=== PATIENT | female | born 1970 | race Caucasian/White ===

== ENCOUNTER 2016-03-23 15:48 | Day surgery (SDC) | payer OTHER ==
[2016-03-20 14:44] VITALS: BMI 24.7
[2016-03-23 16:13] VITALS: TEMP 98.3
[2016-03-23] MEDS ORDERED: TRIAMCINOLONE ACET 40MG/1ML VIAL ONE (18:13)
[2016-03-23] MEDS ORDERED: BUPIVACAINE HCL/PF 0.5% (5MG/ML) 10 ML VIAL ONE ×2 (18:13→18:40)
[2016-03-23] MEDS ORDERED: PROPOFOL 20 ML ONE ×2 (18:20→18:42)
[2016-03-23] MEDS ORDERED: MIDAZOLAM HCL 2 MG/2 ML SINGLE DOSE VIAL ONE (18:20)
[2016-03-23] MEDS ORDERED: BUPIVACAINE HCL/PF 0.5% (5MG/ML) 10 ML VIAL IJ ONE (18:42)
[2016-03-23] MEDS ORDERED: TRIAMCINOLONE ACET 40MG/1ML VIAL IM ONE (18:46)
--- NOTE | 2016-03-23 18:57 | OP ---
Operative Note - Note: Operative Date: 03/23/16 Pre-Operative Diagnosis: thoracic spondylosis Operation: thoracic facet blocks bilaterally T10- L1 Post-Operative Diagnosis: Same as Pre-op Surgeon: Wilner Wang Anesthesia: MAC
[2016-03-23 19:46] VITALS: BP 123/78; PULSE 79
== END 2016-03-23 19:35 | disposition home or self-care (01) ==
LOC: JASU-SURG 15:48
PROVIDERS: ATTEND Anesthesiology
PROC: 3E0T3BZ Introduction of Anesthetic Agent into Peripheral Nerves and Plexi, Percutaneous Approach (ICD-10-PCS; 2016-03-23)
PROC: BR15YZZ Fluoroscopy of Thoracic Facet Joint(s) using Other Contrast (ICD-10-PCS; 2016-03-23)
PROC: 3E0T33Z Introduction of Anti-inflammatory into Peripheral Nerves and Plexi, Percutaneous Approach (ICD-10-PCS; principal; 2016-03-23 17:30)
DX: M47.814 Spondylosis without myelopathy or radiculopathy, thoracic region (principal)
CPT/HCPCS: 76000-TC; 84703

== ENCOUNTER 2023-01-26 04:12 | Day surgery (SDC) | payer OTHER ==
[2023-01-22 09:38] VITALS: BMI 27.3
[~2023-01-26 04:12] MED LIST: BUPIVACAINE HCL/PF 0.25% (2.5MG/ML) 10 ML VIAL IJ ONE; cefOXitin SODIUM 1 GM VIAL (RESTRICTED TO ID) IVPB ONE
[2023-01-26] MEDS ORDERED: HYDROmorphone HCl 2 MG/ML VIAL ONE (09:53)
[2023-01-26] MEDS ORDERED: MIDAZOLAM HCL 2 MG/2 ML SINGLE DOSE VIAL ONE (09:54)
[2023-01-26] MEDS ORDERED: KETAMINE HCL 200 MG/20 ML VIAL ONE (09:54)
[2023-01-26] MEDS ORDERED: SODIUM CHLORIDE 0.9% P/F 10 ML VIAL IJ ONE (09:58)
[2023-01-26] MEDS ORDERED: ROCURONIUM BROMIDE 50 MG/5 ML SYRINGE ONE (09:59)
[2023-01-26] MEDS ORDERED: BUPIVACAINE HCL/PF 0.5% (5MG/ML) 10 ML VIAL ONE (10:54)
[2023-01-26] MEDS ORDERED: ONDANSETRON 4 MG/2 ML VIAL IVPUSH PRN (11:00)
[2023-01-26] MEDS ORDERED: BUPIVACAINE HCL/PF 0.25% (2.5MG/ML) 10 ML VIAL ONE (11:35)
[2023-01-26] MEDS ORDERED: cefOXitin SODIUM 1 GM VIAL (RESTRICTED TO ID) IVPB ONE (12:15)
[2023-01-26] MEDS ORDERED: BUPIVACAINE HCL/PF 0.25% (2.5MG/ML) 10 ML VIAL IJ ONE (12:25)
[2023-01-26] MEDS ORDERED: METOPROLOL TARTRATE 5 MG/5 ML VIAL ONE (13:02)
[2023-01-26] MEDS ORDERED: PROPOFOL 20 ML ONE (14:09)
[2023-01-26] MEDS ORDERED: SUGAMMADEX SODIUM 200 MG/2 ML VIAL ONE (14:12)
[2023-01-26] MEDS ORDERED: DROSPIRENONE 4 MG PO SCH (15:00)
[2023-01-26] MEDS: LACTATED RINGERS SOLUTION 1,000 ML IV SCH (17:42)
[2023-01-26] MEDS: ONDANSETRON 4 MG/2 ML VIAL IVPUSH SCH (18:30)
[2023-01-26] MEDS: ACETAMINOPHEN 1000 MG/100 ML BAG IVPB SCH (20:52)
[2023-01-26] MEDS: METOCLOPRAMIDE HCL INJECTION 10 MG/2 ML VIAL IVPUSH SCH (20:54)
[2023-01-26] MEDS: HEPARIN NA (PORCINE) 5,000 UNITS/ML 1ML VIAL SQ SCH (22:17)
[2023-01-26] MEDS: FAMOTIDINE 20 MG/50 ML IVPB 20 MG/50 ML MG IVPB SCH (22:18)
[2023-01-27] MEDS: ONDANSETRON 4 MG/2 ML VIAL IVPUSH SCH ×3 (00:07→13:32)
[2023-01-27] MEDS: ACETAMINOPHEN 1000 MG/100 ML BAG IVPB SCH ×3 (02:00→15:10)
[2023-01-27] MEDS: METOCLOPRAMIDE HCL INJECTION 10 MG/2 ML VIAL IVPUSH SCH ×2 (04:46→13:32)
[2023-01-27] MEDS ORDERED: ACETAMINOPHEN 325 MG TABLET (FP) PO ONE (05:11)
[2023-01-27] MEDS: LACTATED RINGERS SOLUTION 1,000 ML IV SCH ×2 (07:24→15:10)
[2023-01-27 09:29] LABS: HEMATOCRIT 33.4 % (32.4-45.2); HEMOGLOBIN 10.9 GM/dL (10.7-15.3); MCH 29.6 pg (25.7-33.7); MCHC 32.7 g/dl (32.0-36.0); MEAN CELL VOLUME 90.5 fl (80-96); MEAN PLT VOLUME 6.9 fl (7.5-11.1); PLATELET COUNT 343 10^3/uL (134-434); RBC 3.69 M/mm3 (3.60-5.2); WHITE BLOOD COUNT 11.6 K/mm3 (4.0-10.0)
[2023-01-27 09:43] LABS: POTASSIUM 3.8 mmol/L (3.5-5.1)
[2023-01-27 09:53] LABS: CREATININE 1.1 mg/dL (0.55-1.3)
[2023-01-27] MEDS: FAMOTIDINE 20 MG/50 ML IVPB 20 MG/50 ML MG IVPB SCH (10:32)
[2023-01-27] MEDS: HEPARIN NA (PORCINE) 5,000 UNITS/ML 1ML VIAL SQ SCH (10:32)
[2023-01-27] MEDS ORDERED: ONDANSETRON 4 MG TABLET PO ONE (13:32)
[2023-01-27] MEDS ORDERED: oxyCODONE HCL 5 MG TABLET PO PRN (13:34)
[2023-01-27] MEDS ORDERED: FAMOTIDINE 20 MG TABLET PO SCH (13:45)
[2023-01-27] MEDS ORDERED: ONDANSETRON *ODT* 4 MG TABLET SL ONE (13:45)
[2023-01-27 14:03] VITALS: BP 128/74; PULSE 96; RESP 17; TEMP 99.6
[2023-01-27] MEDS ORDERED: METOCLOPRAMIDE HCL 10 MG TABLET (FP) PO SCH (16:30)
== END 2023-01-27 16:45 | disposition home or self-care (01) ==
LOC: SUATTDRO 04:12 → JASUSAT 04:12 → JASU-SURG 04:12 → J6S 16:59 → JASUSAT 01-27 16:45
PROVIDERS: ATTEND Internal Medicine
PROC: 0DV44ZZ Restriction of Esophagogastric Junction, Percutaneous Endoscopic Approach (ICD-10-PCS; 2023-01-26)
PROC: 0BQT4ZZ Repair Diaphragm, Percutaneous Endoscopic Approach (ICD-10-PCS; principal; 2023-01-26 08:00)
DX: K44.9 Diaphragmatic hernia without obstruction or gangrene (principal); K21.9 Gastro-esophageal reflux disease without esophagitis
CPT/HCPCS: 36415; 80048; 85027; 86850; 86900; 86901; 94760; J1644

== ENCOUNTER 2023-03-18 04:06 | Day surgery (SDC) | payer OTHER ==
[2023-03-16 11:16] VITALS: BMI 26.5
[2023-03-18] MEDS ORDERED: PROPOFOL 20 ML ONE (10:19)
[2023-03-18] MEDS ORDERED: oxyCODONE HCL 5 MG TABLET PO PRN (11:02)
[2023-03-18] MEDS ORDERED: ONDANSETRON 4 MG/2 ML VIAL IVPUSH PRN (11:02)
[2023-03-18] MEDS ORDERED: LACTATED RINGERS SOLUTION 1,000 ML IV SCH (11:15)
[2023-03-18 12:39] VITALS: RESP 18
[2023-03-18 13:13] VITALS: BP 116/74; PULSE 76; TEMP 98.2
== END 2023-03-18 12:10 | disposition home or self-care (01) ==
LOC: JASU-SURG 04:06
PROVIDERS: ATTEND Otolaryngology
PROC: 0WJQ8ZZ Inspection of Respiratory Tract, Via Natural or Artificial Opening Endoscopic Approach (ICD-10-PCS; principal; 2023-03-18 10:00)
DX: G47.33 Obstructive sleep apnea (adult) (pediatric) (principal)
CPT/HCPCS: 94760